=== PATIENT | male | born 1970 ===

== ENCOUNTER 2017-03-16 06:23 | Day surgery (SDC) | payer OTHER ==
[2017-02-28 10:23] VITALS: BMI 31.5
[2017-03-16] MEDS ORDERED: Propofol 10 mg/ml Inj (20 ML) ONE (09:44)
[2017-03-16] MEDS ORDERED: Midazolam 2 MG/2 ML VIAL ONE (09:44)
[2017-03-16] MEDS ORDERED: Rocuronium 10 mg/ml (5 ml) ONE ×2 (09:45→13:03)
[2017-03-16] MEDS: Lidocaine 1% Inj (20ml) ONE ×2 (09:49→11:04)
[2017-03-16] MEDS ORDERED: Lactated Ringer's 1,000 ML IV ONE ×4 (09:49→13:11)
[2017-03-16] MEDS: Bupivacaine-Epi 0.25%-1:200,000 PF Inj ONE ×2 (09:49→11:04)
[2017-03-16] MEDS: ceFAZolin IV 2 gm in Dextrose 2 GM/50 ML BAG IVPB ONE ×2 (09:50→10:50)
[2017-03-16] MEDS ORDERED: Bupivacaine HCl 0.25% PF (10 ml) Inj ONE (10:28)
[2017-03-16] MEDS ORDERED: HYDROmorphone 0.5 mg/0.5 ml ISec IVP PRN ×2 (10:32→13:53)
[2017-03-16] MEDS ORDERED: Morphine 4 MG/ML VIAL ONE ×2 (12:56→13:02)
[2017-03-16] MEDS ORDERED: Neostigmine Methylsulfate 3mg/3ml Syringe IV ONE (13:03)
--- NOTE | 2017-03-16 13:23 | PCM.SURG1 ---
Surgeon's Initial Post Op Note - Surgeon's Notes Surgeon: Dr. Farnsworth Rvda Master Certified Rv Technician: Dr. Santillan PGY2, Stephenie Benitez RATE SUPERVISOR, Heidi Adams OMS3 Type of Anesthesia: General Endo Pre-Operative Diagnosis: Right inguinal hernia Operative Findings: see dictation Post-Operative Diagnosis: same Operation Performed: laparoscopic TEP inguinal hernia repair Specimen/Specimens Removed: cord lipoma Estimated Blood Loss: EBL {In ML}: 10 Post-Op Condition: Good Date of Surgery/Procedure: 03/16/17 Time of Surgery/Procedure: 10:30
[2017-03-16] MEDS: Oxycodone/Acetaminophen 5/325 mg Tab ONE ×2 (15:39→15:53)
[2017-03-16] MEDS ORDERED: Oxycodone/Acetaminophen 5/325 mg Tab PO ONE (15:45)
[2017-03-16 15:49] VITALS: RESP 18; O2SAT 98
[2017-03-16 18:02] VITALS: BP 105/64; PULSE 75; TEMP 97.8
--- NOTE | 2017-03-19 01:20 | OP ---
PROCEDURE DATE: 03/16/2017 PREOPERATIVE DIAGNOSIS: Right inguinal hernia. POSTOPERATIVE DIAGNOSES: 1. Right direct inguinal hernia. 2. Lipoma of the right inguinal hernial sac. PROCEDURE DONE: 1. Laparoscopic right inguinal hernia repair with a mesh. 2. Laparoscopic excision of the lipoma of the cord. SURGEON: The procedure was done by Dr. Javad shepard. CAREER COACH: CHRIS Elizalde and Adriana Santillan, PGY-2 resident. TYPE OF ANESTHESIA: General endotracheal tube anesthesia. ESTIMATED BLOOD LOSS: Around 10 mL. DRAIN: None. PATHOLOGY: Lipoma of the cord was sent to the pathology. COMPLICATIONS: None. INTRAOPERATIVE FINDINGS: The patient had a large right direct inguinal hernia and the patient also had a large lipoma of the right hernial sac. DESCRIPTION OF PROCEDURE: On intraoperative steps, this is a 46-year-old male who was diagnosed with right inguinal hernia and the patient was consented for the laparoscopic right inguinal hernia repair with a mesh, brought to the OR, placed supine on the operating table. After induction of the anesthesia, the abdomen was prepped and draped in the usual sterile fashion. Infraumbilical transverse incision was made after incising skin and subcutaneous tissue. After incising skin and subcutaneous tissue, the anterior rectus sheath was incised; retrorectus dissection was done. The balloon dissector was placed and preperitoneal dissection was done and a pneumo was created in the preperitoneum and a two 5-mm ports were placed. The dissection of the lateral peritoneal reflection was done as well as the medial dissection was done. The patient found to have a large direct inguinal hernia and the vas deferens as well as spermatic cord vessels were identified and the hernial sac was reduced. The lipoma of the cord was resected and again it was sent off the table for pathology and now the 15 x 10 cm anatomical mesh was placed and after proper implantation of the mesh, pneumo was deflated and all the ports were taken out under vision. There was proper hemostasis in each and every part of the procedure. The umbilical port site was closed in 2 layers of 0 Vicryl interrupted sutures, skin with 4-0 Monocryl and a dry sterile dressing was applied. The patient tolerated the procedure well. Count of the instrument and gauze was correct. There were no apparent complications. Zuhair Farnsworth MD [facility] # [id number]
== END 2017-03-16 17:40 | disposition home or self-care (01) ==
LOC: C.SDS 06:23
PROVIDERS: ATTEND Surgery Surgical Critical Care
DX: K40.90 Unilateral inguinal hernia, without obstruction or gangrene, not specified as recurrent (principal); D17.6 Benign lipomatous neoplasm of spermatic cord
CPT/HCPCS: 36415; 49650; 85610; 85730; 88304; C1781; J0131; J0690; J1885; J2001; J2250; J2270; J2405; J2704; J2710; J3010; J7120

== ENCOUNTER 2017-08-28 10:14 | Emergency (ER) | payer OTHER ==
[2017-08-28 10:14] VITALS: BMI 31.5
[2017-08-28 10:20] VITALS: BP 104/70; PULSE 79; RESP 18; TEMP 98; O2SAT 98
--- NOTE | 2017-08-28 11:01 | C.PDOC ---
History Of Present Illness 47yo male, presents to ER with complaints of worsening seasonal allergies, including nasal congestion and eye irritation. Patient has been using claritin with no improvement in symptoms. He also reports associated cough, and rhinorrhea. Patient denies any fever or chills and offers no other medical complaints. PMD: None Time Seen by Provider: 08/28/17 10:23 Chief Complaint (Nursing): Allergic Reaction History Per: Patient History/Exam Limitations: None Onset/Duration Of Symptoms: Days Current Symptoms Are (Timing): Still Present Past Medical History Reviewed: Historical Data, Nursing Documentation, Vital Signs Vital Signs: Last Vital Signs Temp 98 F 08/28/17 10:17 Pulse 79 08/28/17 10:17 Resp 18 08/28/17 10:17 BP 104/70 08/28/17 10:17 Pulse Ox 98 08/28/17 11:05 - Medical History PMH: No Chronic Diseases Denies: Chronic Kidney Disease Surgical History: No Surg Hx Family History: States: No Known Family Hx, Unknown Family Hx - Social History Hx Alcohol Use: No Hx Substance Use: No Review Of Systems Constitutional: Negative for: Fever, Chills Eyes: Positive for: Other (eye irritaion) ENT: Positive for: Nose Discharge, Nose Congestion Respiratory: Positive for: Cough Physical Exam - Physical Exam Appears: Non-toxic, No Acute Distress Skin: Normal Color, Warm, Dry Head: Atraumatic, Normacephalic Eye(s): bilateral: Normal Inspection, PERRL, EOMI Nose: No Discharge Oral Mucosa: Moist Throat: Normal, No Erythema Neck: Normal ROM, Supple Chest: Symmetrical Cardiovascular: Rhythm Regular Respiratory: Normal Breath Sounds Neurological/Psych: Oriented x3 ED Course And Treatment O2 Sat by Pulse Oximetry: 98 (RA) Pulse Ox Interpretation: Normal Medical Decision Making Medical Decision Making: Impression: Seasonal allergies Plan: -- Patient advised to try different allergy medications; prescriptions for Zyrtec, Sudafed and Nasacort given. Patient instructed to followup with PMD in 2 -3 days. Stable for discharge home. Disposition Counseled Patient/Family Regarding: Diagnosis, Need For Followup, Rx Given - Disposition Referrals: [facility] [Outside] Disposition: HOME/ ROUTINE Disposition Time: 11:02 Condition: STABLE Additional Instructions: follow up with medical clinic in 2 days call to make an appointment take medications as prescribed return to ER if symptoms worsens or progress Prescriptions: Cetirizine HCl [Zyrtec] 10 mg PO DAILY PRN #30 tab.rapdis PRN Reason: Allergy Symptoms Pseudoephedrine HCl [Sudafed] 30 mg PO QID PRN #30 tablet PRN Reason: Allergy Symptoms Triamcinolone Acetonide [Nasacort] 1 spray NS BID PRN #1 bottle PRN Reason: Allergy Symptoms Instructions: Seasonal Allergies in Adults Forms: Gen Discharge Inst Lao, [facility] (Lao) Print Language: YI - Clinical Impression Clinical Impression: Seasonal allergies - Scribe Statement The provider has reviewed the documentation as recorded by the Scribe (Aixa Fuentes) Provider Attestation: All medical record entries made by the Scribe were at my direction and personally dictated by me. I have reviewed the chart and agree that the record accurately reflects my personal performance of the history, physical exam, medical decision making, and the department course for this patient. I have also personally directed, reviewed, and agree with the discharge instructions and disposition.
== END 2017-08-28 11:10 | disposition home or self-care (01) ==
LOC: C.ER 10:14
DX: J30.2 Other seasonal allergic rhinitis (principal)

== ENCOUNTER 2017-09-03 09:27 | Emergency (ER) | payer OTHER ==
[2017-09-03 09:27] VITALS: BMI 31.5
--- NOTE | 2017-09-03 09:43 | C.PDOC ---
History Of Present Illness VIA TRANS' CO PERSIST seasonal allergies, including nasal congestion and eye irritation. SEEN 08/28 FOR SAME, TAKING ZYRTEC BENADRYL AND NASACORT W LIMITED RELIEF. PS "I THOUGHT THIS WOULD CURE MY PROBLEM". REQUESTING "SHOT". PS TRIED TO FU IN CLINIC BUT "NO ONE PICKING UP THE PHONE" EXAM NARD NONTOXIC HEENT NEG SKIN NEG NARD REMAINDER NEG Time Seen by Provider: 09/03/17 09:43 Chief Complaint (Nursing): Medical Clearance History Per: Patient History/Exam Limitations: no limitations Onset/Duration Of Symptoms: Days Current Symptoms Are (Timing): Still Present Reports Recently: Seen In ED Past Medical History Reviewed: Historical Data, Nursing Documentation, Vital Signs Vital Signs: Last Vital Signs Temp 97.3 F L 09/03/17 09:42 Pulse 66 09/03/17 09:42 Resp 16 09/03/17 09:42 BP 105/68 09/03/17 09:42 Pulse Ox 99 09/03/17 10:17 - Medical History PMH: No Chronic Diseases Denies: Chronic Kidney Disease Other Surgeries: Hx of surgeries Family History: States: Unknown Family Hx - Social History Hx Alcohol Use: No Hx Substance Use: No Review Of Systems Except As Marked, All Systems Reviewed And Found Negative. Constitutional: Positive for: Other (Seasonal allergies) Eyes: Positive for: Other (Eye irritation) ENT: Positive for: Nose Congestion Physical Exam - Physical Exam Appears: Non-toxic, No Acute Distress Skin: Normal Color, Warm, Dry Head: Atraumatic, Normacephalic Eye(s): bilateral: Normal Inspection Ear(s): Bilateral: Normal Nose: Normal Oral Mucosa: Moist Throat: Normal Respiratory: Normal Breath Sounds, No Rales, No Rhonchi, No Wheezing, Other (No acute respiratory distress) Neurological/Psych: Oriented x3, Normal Speech ED Course And Treatment O2 Sat by Pulse Oximetry: 99 (RA) Pulse Ox Interpretation: Normal Medical Decision Making Medical Decision Making: Plan: Patient was discharged and told to follow up with PMD. Disposition Counseled Patient/Family Regarding: Diagnosis, Need For Followup - Disposition Referrals: [facility] [Outside] [facility] [Outside] Disposition: HOME/ ROUTINE Disposition Time: 09:46 Condition: GOOD Additional Instructions: LLAME AL NMERO DE "BARTACKER" PARA AYUDAR CON LA AMAYA DE LA CLNICA. CONTINUAR MEDICAMENTOS ACTUALES SEGN LO PRESCRITO. Instructions: Seasonal Allergies (DC) Forms: [facility] (Albanian) - Clinical Impression Clinical Impression: Seasonal allergies - Scribe Statement The provider has reviewed the documentation as recorded by the Scribe (Anitha Maynard) Provider Attestation: All medical record entries made by the Scribe were at my direction and personally dictated by me. I have reviewed the chart and agree that the record accurately reflects my personal performance of the history, physical exam, medical decision making, and the department course for this patient. I have also personally directed, reviewed, and agree with the discharge instructions and disposition.
[2017-09-03 09:50] VITALS: BP 105/68; PULSE 66; RESP 16; TEMP 97.3; O2SAT 99
== END 2017-09-03 10:00 | disposition home or self-care (01) ==
LOC: C.ER 09:27
DX: J30.2 Other seasonal allergic rhinitis (principal)

== ENCOUNTER 2018-06-29 10:42 | Outpatient (CLI) | payer OTHER | END 2018-06-29 10:43 | disposition home or self-care (01) | LOC: C.USIC 10:43 ==